=== PATIENT | male | born 1995 | race Caucasian/White ===

== ENCOUNTER → 2016-08-22 | Outpatient (CLI) | payer BC ==
[2016-08-22 20:16] LABS: Basophils # (A) 0.1 k/uL (0-0.2); Basophils % (A) 1 %; CH 29.5; CHCM 34.7; Eosinophils # (A) 0.2 k/uL (0-0.7); Eosinophils % (A) 3 %; HCT 51.5 % (39.0-53.0); HDW 2.71; HGB 17.7 gm/dL (13.0-17.5); Luc # (Auto) 0.22; Luc % (Auto) 3; Lymphocytes # (A) 1.9 k/uL (1.0-4.8); Lymphocytes % (A) 25 %; MCH 29.3 pg (25.0-35.0); MCHC 34.3 g/dL (31.0-37.0); MCV 85.3 fL (80.0-100.0); Mean Platelet Volume 8.1; Monocytes # (A) 0.5 k/uL (0-1.0); Monocytes % (A) 7 %; Neutrophils # (A) 4.8 k/uL (1.3-7.7); Neutrophils % (A) 62 %; RBC 6.03 m/uL (4.30-5.90); RDW 12.7 % (11.5-15.5); WBC 7.8 k/uL (3.8-10.6); WBC (Perox) 8.06
[2016-08-22 21:47] LABS: ALT 102 U/L (21-72); AST 50 U/L (17-59); Alkaline Phosphatase 92 U/L (38-126); Anion Gap 15 mmol/L; Blood Urea Nitrogen 16 mg/dL (9-20); Calcium 10.3 mg/dL (8.4-10.2); Carbon Dioxide 27 mmol/L (22-30); Chloride 100 mmol/L (98-107); Cholesterol 221 mg/dL (<200); Glucose 87 mg/dL (74-99); HDL Cholesterol 48 mg/dL (40-60); Non-African American GFR(MDRD) >60 (>60 ml/min/1.73 sqM); Potassium 4.1 mmol/L (3.5-5.1); Sodium 142 mmol/L (137-145); Total Bilirubin 1.4 mg/dL (0.2-1.3); Total Protein 8.6 g/dL (6.3-8.2); Triglycerides 127 mg/dL (<150)
== END | disposition home or self-care (01) ==
LOC: MMGSC 10:09
PROVIDERS: ATTEND Family Medicine
DX: Z00.00 Encounter for general adult medical examination without abnormal findings (principal); I10 Essential (primary) hypertension; N39.0 Urinary tract infection, site not specified
CPT/HCPCS: 36415; 80053; 80061; 84439; 84443; 85025; 87086

== ENCOUNTER → 2016-10-03 | Outpatient (CLI) | payer BC ==
[2016-10-03 19:29] LABS: Basophils % (A) 1 %; CH 29.9; CHCM 34.9; Eosinophils # (A) 0.2 k/uL (0-0.7); Eosinophils % (A) 4 %; HCT 48.8 % (39.0-53.0); HDW 2.78; HGB 16.4 gm/dL (13.0-17.5); Luc # (Auto) 0.16; Luc % (Auto) 3; Lymphocytes # (A) 1.1 k/uL (1.0-4.8); Lymphocytes % (A) 19 %; MCH 28.9 pg (25.0-35.0); MCHC 33.6 g/dL (31.0-37.0); Mean Platelet Volume 7.2; Monocytes # (A) 0.5 k/uL (0-1.0); Monocytes % (A) 8 %; Neutrophils # (A) 3.5 k/uL (1.3-7.7); Neutrophils % (A) 65 %; RBC 5.68 m/uL (4.30-5.90); RDW 13.2 % (11.5-15.5); WBC 5.5 k/uL (3.8-10.6); WBC (Perox) 6.02
[2016-10-03 19:35] LABS: ALT 94 U/L (21-72); AST 90 U/L (17-59); Alkaline Phosphatase 85 U/L (38-126); Anion Gap 12 mmol/L; Blood Urea Nitrogen 20 mg/dL (9-20); Calcium 9.9 mg/dL (8.4-10.2); Carbon Dioxide 25 mmol/L (22-30); Chloride 102 mmol/L (98-107); Glucose 85 mg/dL (74-99); Non-African American GFR(MDRD) >60 (>60 ml/min/1.73 sqM); Potassium 3.9 mmol/L (3.5-5.1); Sodium 139 mmol/L (137-145); Total Bilirubin 1.1 mg/dL (0.2-1.3); Total Protein 7.9 g/dL (6.3-8.2)
== END | disposition home or self-care (01) ==
LOC: MMGSC 10:27
PROVIDERS: ATTEND Family Medicine
DX: D75.1 Secondary polycythemia (principal); R94.5 Abnormal results of liver function studies
CPT/HCPCS: 36415; 80053; 85025

== ENCOUNTER → 2016-10-31 | Outpatient (CLI) | payer BC ==
--- NOTE | 2016-10-31 07:56 | US ---
EXAMINATION TYPE: US liver DATE OF EXAM: 10/31/2016 7:46 AM COMPARISON: NONE CLINICAL HISTORY: Elevated LST's R94.5. 21 year old with Elevated LFT's, pt has no complaints at this time EXAM MEASUREMENTS: Liver Length: 16.6 cm Gallbladder Wall: 0.3 cm CBD: 0.5 cm Right Kidney: 10.9 x 4.5 x 5.1 cm Pancreas: wnl, tail obscured by overlying bowel gas Liver: Heterogeneous, bright echotexture with probable fatty sparing near GB Gallbladder: wnl Evidence for sonographic Hughes's sign: No CBD: wnl Right Kidney: wnl IMPRESSION: 1. Mild fatty infiltration of the liver.
== END | disposition home or self-care (01) ==
LOC: RADUSWWP 07:34
PROVIDERS: ATTEND Family Medicine
DX: K76.0 Fatty (change of) liver, not elsewhere classified (principal)
CPT/HCPCS: 76705

== ENCOUNTER → 2016-12-19 | Outpatient (CLI) | payer BC ==
[2016-12-19 18:15] LABS: Iron 97 ug/dL (49-181)
[2016-12-19 18:43] LABS: Hepatitis B Surface Ag Index 0.04
[2016-12-19 18:48] LABS: Hepatitis B Core IgM Index 0.13
[2016-12-19 19:00] LABS: Hepatitis C Virus IgG Ab Negative (Negative); Hepatitis C Virus IgG Index 0.03
[2016-12-19 23:07] LABS: % Iron Saturation 28.5 % (20-50); Total Iron Binding Capacity 340 ug/dL (261-462)
== END | disposition home or self-care (01) ==
LOC: MMGSC 09:58
PROVIDERS: ATTEND Family Medicine
DX: R79.89 Other specified abnormal findings of blood chemistry (principal)
CPT/HCPCS: 36415; 80074; 82103; 82390; 82728; 83516; 83540; 83550

== ENCOUNTER → 2017-06-24 | Outpatient (CLI) | payer BC ==
[2017-06-24 21:04] LABS: ALT 79 U/L (21-72); AST 52 U/L (17-59); Albumin 4.7 g/dL (3.5-5.0); Alkaline Phosphatase 112 U/L (38-126); Anion Gap 16 mmol/L; Blood Urea Nitrogen 19 mg/dL (9-20); Calcium 9.9 mg/dL (8.4-10.2); Carbon Dioxide 21 mmol/L (22-30); Chloride 106 mmol/L (98-107); Cholesterol 204 mg/dL (<200); Glucose 94 mg/dL (74-99); HDL Cholesterol 39 mg/dL (40-60); LDL Cholesterol,Calculated 137 mg/dL (0-99); Sodium 143 mmol/L (137-145); Total Bilirubin 0.7 mg/dL (0.2-1.3); Total Protein 7.5 g/dL (6.3-8.2); Triglycerides 138 mg/dL (<150)
[2017-06-24 21:08] LABS: Potassium 4.2 mmol/L (3.5-5.1)
== END | disposition home or self-care (01) ==
LOC: MMGSC 09:50
PROVIDERS: ATTEND Family Medicine
DX: E78.5 Hyperlipidemia, unspecified (principal); I10 Essential (primary) hypertension; R79.89 Other specified abnormal findings of blood chemistry
CPT/HCPCS: 36415; 80053; 80061

== ENCOUNTER → 2020-05-16 | Outpatient (CLI) | payer BC | END | disposition home or self-care (01) | LOC: LABWHC1 16:40 | PROVIDERS: ATTEND Family Medicine | DX: Z53.9 Procedure and treatment not carried out, unspecified reason (principal) | CPT/HCPCS: U0003; C9803 ==

== ENCOUNTER → 2021-11-13 | Outpatient (CLI) | payer OTHER ==
--- NOTE | 2021-11-14 13:22 | MR ---
EXAMINATION TYPE: MR brain wo con DATE OF EXAM: 11/13/2021 COMPARISON: NONE HISTORY: 26-year-old male R51.9, cephalgia, Headaches, family history of aneurysm TECHNIQUE: Multiplanar, multisequence images of the brain and brainstem were acquired without IV con trast. Diffusion weighted imaging is performed. FINDINGS: No evidence for acute infarction, hemorrhage, mass, mass effect, midline shift, herniation, effacemen t of basal cisterns, or extra-axial fluid collection. The ventricles and sulci are age-appropriate. Major intracranial flow voids are intact. T2/FLAIR weighted sequences show no white matter signal abnormality. Midline structures demonstrate normal morphology. The craniocervical junction is normal. Post contrast images demonstrate no evidence of pathologic enhancement. Dural venous sinuses are pat ent. Mild/moderate mucosal thickening ethmoid air cells and mild within the right maxillary and bilateral frontal sinuses. 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 Small amount of fluid within the pneumatized right petrous apex air cells, axial image 7. Globes are intact. IMPRESSION: 1. No acute intracranial abnormality seen. No white matter signal changes. 2. 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 3. Mild to moderate chronic ethmoid sinus disease. 4. A small amount of fluid within the pneumatized right petrous apex air cells. Questionable clinical significance. Correlate for any pain here to exclude mild inflammation.
--- NOTE | 2021-11-14 13:29 | MR ---
EXAMINATION TYPE: MR angio head wo con DATE OF EXAM: 11/13/2021 COMPARISON: MRI brain same day HISTORY: 26-year-old male R51.9, cephalgia, Headaches, family hx of aneurysm TECHNIQUE: High-resolution 3-D [id number] imaging of the [place]. Rotational 3-D reconst ructions generated on a dedicated workstation. FINDINGS: The vertebral and basilar arteries are patent as is the remainder of the posterior circulation. The internal carotid arteries and remainder of the anterior circulation is patent. No significant narrowing or aneurysmal change is seen. IMPRESSION: Unremarkable MR angiography [place]. No evidence for intracranial aneurysm or abnormal steno ses.
== END | disposition home or self-care (01) ==
LOC: RADMRIMAIN 07:33
PROVIDERS: ATTEND Family Medicine
DX: J32.2 Chronic ethmoidal sinusitis (principal); Z86.79 Personal history of other diseases of the circulatory system
CPT/HCPCS: 70544; 70551; A9585